=== PATIENT | male | born 1940 ===

== ENCOUNTER 2016-12-08 08:22 | Day surgery (SDC) | payer MEDICARE, OTHER ==
[2016-12-07 09:40] VITALS: BMI 30.2
[~2016-12-08 08:22] MED LIST: LACTATED RINGERS 1,000 ML IV SCH; MOXIFLOXACIN HCL 0.5% DROPS 3 ML BTL OP ONE; TETRACAINE 0.5% OPHTH (PF) DROPS 4 ML BTL OP ONE; TIMOLOL 0.5% OPHTH SOLN (PF) 0.2 ML DROPERETTE OP ONE
[2016-12-08] MEDS: CYCLOPENTOLATE 1% OPHTH SOLN 2 ML BTL OP ONE ×3 (09:13→09:26)
[2016-12-08] MEDS: PHENYLEPHRINE 2.5% OPHTH DRP 2ML OP NR ×3 (09:16→09:29)
[2016-12-08 09:17] VITALS: RESP 16; TEMP 98
[2016-12-08] MEDS ORDERED: LIDOCAINE 1% 20 ML VIAL (10MG/ML) FOR IV START INTRADERMA ONE (09:22)
[2016-12-08] MEDS ORDERED: MIDAZOLAM 2 MG/2 ML VIAL ONE (10:34)
[2016-12-08] MEDS ORDERED: fentaNYL (PF) 50 MCG/ML 2 ML AMP ONE (10:34)
[2016-12-08] MEDS ORDERED: HYALURONATE SODIUM INTRAOCULAR 1 EACH SYRINGE (12MG/ML) INTRAOCULA ONE (10:36)
[2016-12-08] MEDS ORDERED: BALANCED SALT IRRIG SOLN COMB2 15 ML IRRIG.SOLN IRRIGATION ONE (10:37)
[2016-12-08] MEDS ORDERED: LIDOCAINE 1% (PF) 10MG/ML VIAL MISCELLANE ONE (10:37)
[2016-12-08] MEDS ORDERED: EPINEPHrine (PF) 0.3 ML in BALANCED SALT IRRIG SOLN COMB2 500 ML IRRIGATION ONE (10:40)
--- NOTE | 2016-12-08 11:16 | P.OP ---
Date of Procedure: 12/08/16 Preoperative Diagnosis: NS & CS & reg astigmatism Postoperative Diagnosis: same Procedure(s) Performed: PIOL OD Implants: [id number] 21.50 Anesthesia: MAC Surgeon: Robbie Zuleta Estimated Blood Loss (ml): 0 Pathology: none sent Condition: stable Disposition: same day Indications for Procedure: blurry vision Operative Findings: No complications
[2016-12-08 11:27] VITALS: BP 131/78; PULSE 60
--- NOTE | 2016-12-08 18:46 | OP ---
DATE OF SERVICE: 12/08/2016 SURGEON: DAVID PATRICK MD CLIENT COORDINATOR: PREOPERATIVE DIAGNOSIS: Phacoemulsification of cataract and intraocular lens implant of the right eye. POSTOPERATIVE DIAGNOSIS: Phacoemulsification of cataract and intraocular lens implant of the right eye. OPERATION: Nuclear sclerosis, cortical sclerosis and regular astigmatism. ANESTHESIA: Topical. ESTIMATED BLOOD LOSS: None. SPECIMENS REMOVED: None. COMPLICATIONS: OPERATIVE FINDINGS: NARRATIVE: After obtaining the appropriate consent, the patient was brought to the operating room where he was asked to sit upright so that the axis of 0 and 180 degrees were identified and marked with a gentian angela marker. He was then placed in the proper supine position under cardiac monitoring, prepped and draped in the usual sterile manner. He was approached from his right temporal side and using previously acquired corneal topography information, a ( Cionni ) Astigmatism marker was used to identify and marked the axis of 110 degrees. Once this was accomplished a paracentesis with a 1.1 mm blade was used to create an opening at the 11:00 position. This was followed by instillation of 1% Xylocaine MPF 50-50 mix with balance salt solution. The anterior chamber was then stabilized using Amvisc. At the 9:00 position, a 2.5 mm keratome was used to create a self-sealing corneal flap incision in a Langerman fashion. Through this opening, a cystotome was introduced to begin a continuous tear capsulorrhexis, which was completed using the Utrata forceps. Hydrodissection and hydrodelineation of the lens was accomplished with balanced salt solution. Phacoemulsification of the lens utilizing phaco chop was accomplished in 13.51 seconds at 8% power. Additional Xylocaine MPF was instilled into the anterior chamber. This was followed by removal of the remaining cortex under irrigation and aspiration. The capsule was polished in the capsule vacuum mode. Then the anterior chamber was stabilized using additional Amvisc and an SAIRA model ZCT 450 21.5 diopter posterior chamber intraocular lens was then inserted into the capsular bag without difficulty. After allowing the haptics to deploy, the lens was rotated so that its index rosendo corresponded to the 110 degrees axis. The remaining viscoelastic was removed from in and around the intraocular lens and the anterior chamber. Once again ensuring that the lens was still in the proper position. The eye was then brought to normal intraocular pressure through the paracentesis port. The incisions were confirmed watertight and the temporal incision was sealed with ReSure. He then received 2 drops of 0.5% timolol followed by 2 drops of Vigamox, was lightly patched and shielded in the usual manner. There were no complications from the procedure. He tolerated the procedure well and was returned to outpatient recovery in good condition. JOSHUA
== END 2016-12-08 12:07 | disposition home or self-care (01) ==
LOC: OR 08:22
PROVIDERS: ATTEND Ophthalmology
DX: H25.13 Age-related nuclear cataract, bilateral (principal); Q14.2 Congenital malformation of optic disc; H52.4 Presbyopia; H52.223 Regular astigmatism, bilateral; E78.1 Pure hyperglyceridemia; E03.9 Hypothyroidism, unspecified; H52.03 Hypermetropia, bilateral; Z86.69 Personal history of other diseases of the nervous system and sense organs; Z79.899 Other long term (current) drug therapy
CPT/HCPCS: 66984; V2787; C1780; J2250; J0171; J3010; J2001